=== PATIENT | female | born 1950 | race Caucasian/White ===

== ENCOUNTER 2021-05-10 11:58 | Inpatient (IN) | payer MEDICARE, BC ==
[~2021-05-10 11:58] MED LIST: Iopamidol-370 76% 500 ML 1 ML ONE
[2021-05-10 12:40] LABS: #Lymphocytes 1.2 thou/uL (1.20-3.40); #Monocytes 0.9 thou/uL (0.11-0.59); #Neutrophils 15.4 thou/uL (1.40-6.50); %Lymphocytes 6.9 % (21.0-51.0); %Monocytes 4.9 % (0.0-10.0); %Neutrophils 88.2 % (42.0-75.0); Hemoglobin 12.9 g/dL (12.0-16.0); Mean Corpuscular HGB CONC 32.5 g/dL (32.0-36.0); Mean Corpuscular Hemoglobin 30.3 pg (27.0-31.0); Mean Corpuscular Volume 93.2 fL (78.0-98.0); Mean Platelet Volume 8.1 fL (7.4-10.4); Platelet Count 225 thou/uL (130-400); RBC Distribution Width 13.8 % (11.5-14.5); Red Blood Cell (RBC) Count 4.24 mill/uL (4.20-5.40); White Blood Cell (WBC) Count 17.4 thou/uL (4.8-10.8)
[2021-05-10] MEDS ORDERED: Ketorolac Tromethamine 30 MG/ML VIAL ONE (13:02)
[2021-05-10] MEDS ORDERED: Ondansetron PF 4 MG/2 ML Vial ONE ×2 (13:02→17:45)
[2021-05-10 13:05] LABS: Albumin 3.8 g/dL (3.4-4.8); Alkaline Phosphatase 86 U/L (40-110); Anion Gap 14 mmol/L (10-20); BUN (Urea Nitrogen) 12 mg/dL (9.8-20.1); Bilirubin, Total 0.8 mg/dL (0.2-1.2); Calc. Creatinine Clearance 0 mL/min (70-130); Calcium 9.2 mg/dL (7.8-10.44); Carbon Dioxide 27 mmol/L (23-31); Chloride 100 mmol/L (98-107); Globulin 3.6 g/dL (2.4-3.5); Glucose 103 mg/dL (83-110); Potassium 3.7 mmol/L (3.5-5.1); Protein, Total 7.4 g/dL (5.8-8.1); Sodium 137 mmol/L (136-145)
[2021-05-10 13:06] LABS: ALT (SGPT) 10 U/L (8-55); AST (SGOT) 16 U/L (5-34)
[2021-05-10] MEDS ORDERED: Piperacillin/Tazobactam 4.5 GM VIAL ONE (13:49)
[2021-05-10 14:37] LABS: Clarity Clear (Clear); Specific Gravity, Urine 1.019 (1.002-1.036)
[2021-05-10 14:38] LABS: Bilirubin Negative (Negative); Blood, Urine Negative (Negative); Glucose, Urine (Dipstick) Normal (Negative); Ketone, Urine Negative (Negative); Leukocyte Negative Leu/uL (Negative); Nitrite Negative (Negative); Protein, Urine (Dipstick) Negative (Neg-Trace); Urobilinogen Normal mg/dL (Less than 2); pH, Urine 6.5 (5.0-9.0)
[2021-05-10 15:13] LABS: SARS-CoV-2 NAA Rapid Test Not Detected (NotDetected)
[2021-05-10] MEDS ORDERED: Fentanyl 100 MCG/2 ML VIAL ONE (17:18)
[2021-05-10] MEDS ORDERED: Lidocaine 1% w/Epinephrine 1:100K 20 ML VIAL ONE (17:22)
[2021-05-10] MEDS ORDERED: Bupivacaine 0.25% HCL 30 ML VIAL ONE (17:22)
[2021-05-10] MEDS ORDERED: Dexamethasone 20 MG/5 ML VIAL ONE (17:45)
[2021-05-10] MEDS ORDERED: Succinylcholine 200 MG/10 ml SYRINGE FS ONE (17:45)
[2021-05-10] MEDS ORDERED: Rocuronium Bromide 10 MG/ML (10ML VIAL) ONE (17:45)
[2021-05-10] MEDS ORDERED: Glycopyrrolate 0.2 MG/ML 5 ML SYRINGE ONE (17:45)
[2021-05-10] MEDS ORDERED: PROPOFOL 200 MG/20 ML VIAL ONE (17:45)
[2021-05-10] MEDS ORDERED: Lidocaine 1% PF 5 ML VIAL ONE (17:45)
[2021-05-10] MEDS ORDERED: ePHEDrine 50 MG/ML VIAL ONE (17:45)
[2021-05-10] MEDS ORDERED: PHENYLEPHRINE-NS 100 MCG/ML 10 ML SYRINGE ONE (17:45)
[2021-05-10] MEDS ORDERED: Piperacillin/Tazobactam 3.375 GM VIAL ONE (18:04)
[2021-05-10] MEDS ORDERED: Morphine 2 MG/ML VIAL SLOW IVP PRN (20:19)
[2021-05-10] MEDS ORDERED: Dextrose 50% Abboject 50 ML SYRINGE SLOW IVP PRN (20:19)
[2021-05-10] MEDS ORDERED: Dextrose 5% in Water 1,000 ML IV PRN (20:19)
[2021-05-10] MEDS ORDERED: hydrALAZINE 20 MG/ML VIAL SLOW IVP PRN (20:19)
[2021-05-10] MEDS ORDERED: Ondansetron PF 4 MG/2 ML Vial IVP PRN (20:19)
[2021-05-10] MEDS ORDERED: Promethazine HCl 25 MG/ML VIAL IM PRN (20:19)
[2021-05-10] MEDS ORDERED: Acetaminophen 650 MG Suppository PR PRN (20:19)
[2021-05-10] MEDS ORDERED: Acetaminophen 325 MG TAB PO PRN (20:19)
[2021-05-10] MEDS ORDERED: HYDROcodone/Acetaminophen 5/325 mg Tablet PO PRN ×2 (20:23)
[2021-05-10 21:14] VITALS: BMI 27.6
[2021-05-10] MEDS: D5 1/2 NS w/20 mEq KCL 1,000 ML IV SCH (22:31)
[2021-05-10] MEDS ORDERED: Piperacillin/Tazobactam 3.375 GM in Sodium Chloride 0.9% 100 ML IVPB SCH (23:59)
[2021-05-11] MEDS: Piperacillin/Tazobactam 3.375 GM in Sodium Chloride 0.9% 100 ML IVPB SCH ×3 (02:17→17:57)
[2021-05-11] MEDS: D5 1/2 NS w/20 mEq KCL 1,000 ML IV SCH ×2 (05:26→16:47)
[2021-05-11 05:36] LABS: #Lymphocytes 0.6 thou/uL (1.20-3.40); #Monocytes 0.4 thou/uL (0.11-0.59); #Neutrophils 11.4 thou/uL (1.40-6.50); %Lymphocytes 5.1 % (21.0-51.0); Hemoglobin 10.7 g/dL (12.0-16.0); Mean Corpuscular HGB CONC 33.4 g/dL (32.0-36.0); Mean Corpuscular Hemoglobin 31.5 pg (27.0-31.0); Mean Corpuscular Volume 94.3 fL (78.0-98.0); Mean Platelet Volume 8.3 fL (7.4-10.4); Platelet Count 159 thou/uL (130-400); RBC Distribution Width 13.5 % (11.5-14.5); Red Blood Cell (RBC) Count 3.38 mill/uL (4.20-5.40); White Blood Cell (WBC) Count 12.4 thou/uL (4.8-10.8)
[2021-05-11 05:59] LABS: Anion Gap 9 mmol/L (10-20); BUN (Urea Nitrogen) 13 mg/dL (9.8-20.1); Calc. Creatinine Clearance 57 mL/min (70-130); Calcium 8.4 mg/dL (7.8-10.44); Carbon Dioxide 29 mmol/L (23-31); Chloride 106 mmol/L (98-107); Glucose 153 mg/dL (83-110); Potassium 4.3 mmol/L (3.5-5.1); Sodium 140 mmol/L (136-145)
[2021-05-11] MEDS: Enoxaparin Sodium 40 MG/0.4 ML SYRINGE SC SCH (09:36)
[2021-05-11] MEDS: Famotidine 20 MG TAB PO SCH (09:37)
[2021-05-11] MEDS: Famotidine/PF 20 mg/2ml Vial SLOW IVP SCH (11:25)
[2021-05-11] MEDS ORDERED: rOPINIRole HCl 0.25 MG TAB PO SCH (21:45)
[2021-05-12] MEDS: Piperacillin/Tazobactam 3.375 GM in Sodium Chloride 0.9% 100 ML IVPB SCH ×2 (02:27→09:01)
[2021-05-12 05:40] LABS: #Lymphocytes 1.4 thou/uL (1.20-3.40); #Monocytes 0.6 thou/uL (0.11-0.59); #Neutrophils 7.9 thou/uL (1.40-6.50); %Eosinophils 0.3 % (0.0-10.0); %Lymphocytes 14.1 % (21.0-51.0); %Monocytes 6.3 % (0.0-10.0); %Neutrophils 79.3 % (42.0-75.0); Hemoglobin 10.1 g/dL (12.0-16.0); Mean Corpuscular HGB CONC 32.9 g/dL (32.0-36.0); Mean Corpuscular Hemoglobin 31.5 pg (27.0-31.0); Mean Corpuscular Volume 95.6 fL (78.0-98.0); Mean Platelet Volume 8.3 fL (7.4-10.4); Platelet Count 176 thou/uL (130-400); RBC Distribution Width 13.7 % (11.5-14.5)
[2021-05-12 08:18] VITALS: BP 131/69; TEMP 98
[2021-05-12] MEDS ORDERED: Chlorthalidone 25 MG TAB PO SCH (09:00)
[2021-05-12] MEDS: Famotidine 20 MG TAB PO SCH (09:01)
[2021-05-12] MEDS: Famotidine/PF 20 mg/2ml Vial SLOW IVP SCH (09:02)
[2021-05-12] MEDS: Enoxaparin Sodium 40 MG/0.4 ML SYRINGE SC SCH (10:31)
[2021-05-12] MEDS ORDERED: rOPINIRole HCl 0.25 MG TAB PO SCH ×2 (21:00)
[2021-05-12] MEDS ORDERED: Amlodipine 5 MG TAB PO SCH (21:00)
[2021-05-12] MEDS ORDERED: Atorvastatin Calcium 20 MG TAB PO SCH (21:00)
[2021-05-12] MEDS ORDERED: Bupropion 150 MG XL TAB PO SCH (21:00)
== END 2021-05-12 13:55 | disposition home or self-care (01) | DRG 339 ==
LOC: ERS 11:58 → SURG A 15:30 → OBSVTOIN 19:12 → SURG A 20:09
PROVIDERS: ADMIT Surgery; ATTEND Surgery
PROC: 0DTJ4ZZ Resection of Appendix, Percutaneous Endoscopic Approach (ICD-10-PCS; principal; 2021-05-10)
DX: K35.33 Acute appendicitis with perforation, localized peritonitis, and gangrene, with abscess (principal); F33.9 Major depressive disorder, recurrent, unspecified; Z20.822 Contact with and (suspected) exposure to COVID-19; E78.5 Hyperlipidemia, unspecified; I10 Essential (primary) hypertension; E78.00 Pure hypercholesterolemia, unspecified; Z90.5 Acquired absence of kidney; Z79.899 Other long term (current) drug therapy
CPT/HCPCS: 36415; 74177; 80048; 80053; 81003; 83605; 85025; 87040; 87070; 87086; 87205; 88304; 94760; 96365; 96375; J1100; J1650; J1885; J2405; J2543; J2704; J3010; J3480; J3490; Q9967; S0020; U0002

== ENCOUNTER 2021-12-18 12:13 | Outpatient (CLI) | payer MEDICARE, BC | END 2021-12-18 12:14 | disposition home or self-care (01) | LOC: BICRAD 12:13 | PROVIDERS: ATTEND Family Medicine | DX: R09.89 Other specified symptoms and signs involving the circulatory and respiratory systems (principal); J84.10 Pulmonary fibrosis, unspecified | CPT/HCPCS: 71046 ==

== ENCOUNTER 2022-12-06 15:58 | Emergency (ER) | payer MEDICARE, BC ==
[2022-12-06 16:57] LABS: #Eosinphils 0.1 thou/uL (0.0-0.7); #Lymphocytes 1.5 thou/uL (1.20-3.40); #Monocytes 0.6 thou/uL (0.11-0.59); #Neutrophils 6.4 thou/uL (1.40-6.50); %Basophils 0.1 % (0.0-1.0); %Eosinophils 1.2 % (0.0-10.0); %Lymphocytes 17.7 % (21.0-51.0); %Monocytes 6.4 % (0.0-10.0); %Neutrophils 74.7 % (42.0-75.0); Hemoglobin 12.9 g/dL (12.0-16.0); Mean Corpuscular HGB CONC 34.1 g/dL (32.0-36.0); Mean Corpuscular Hemoglobin 33.8 pg (27.0-31.0); Mean Corpuscular Volume 99.1 fl (78.0-98.0); Platelet Count 161 10x3/uL (130-400); RBC Distribution Width 13.2 % (11.5-14.5); Red Blood Cell (RBC) Count 3.83 mill/uL (4.20-5.40); White Blood Cell (WBC) Count 8.6 10x3/uL (4.8-10.8)
[2022-12-06 17:23] LABS: ALT (SGPT) 22 U/L (8-55); AST (SGOT) 27 U/L (5-34); Alkaline Phosphatase 66 U/L (40-110); Anion Gap 12 mmol/L (10-20); BUN (Urea Nitrogen) 16 mg/dL (9.8-20.1); Bilirubin, Total 0.5 mg/dL (0.2-1.2); Calc. Creatinine Clearance 0 mL/min (70-130); Calcium 9.3 mg/dL (7.8-10.44); Carbon Dioxide 25 mmol/L (23-31); Chloride 109 mmol/L (98-107); Estimated GFR 57; Globulin 3.1 g/dL (2.4-3.5); Glucose 92 mg/dL (83-110); Potassium 4.6 mmol/L (3.5-5.1); Protein, Total 7.1 g/dL (5.8-8.1); Sodium 141 mmol/L (136-145)
== END 2022-12-06 18:14 | disposition home or self-care (01) ==
LOC: ERS 15:58
DX: R06.02 Shortness of breath (principal); I10 Essential (primary) hypertension; E78.5 Hyperlipidemia, unspecified; Z79.899 Other long term (current) drug therapy
CPT/HCPCS: 36415; 71045; 80053; 83880; 84484; 85025; 93005

== ENCOUNTER 2023-03-07 12:37 | Outpatient (CLI) | payer MEDICARE, BC | END 2023-03-07 12:38 | disposition home or self-care (01) | LOC: RAD 12:37 | PROVIDERS: ATTEND Family Medicine | DX: R07.89 Other chest pain (principal); M48.54XA Collapsed vertebra, not elsewhere classified, thoracic region, initial encounter for fracture; J84.10 Pulmonary fibrosis, unspecified; M41.9 Scoliosis, unspecified | CPT/HCPCS: 72072 ==